=== PATIENT | female | born 1955 | race Caucasian/White ===

== ENCOUNTER 2017-02-11 14:55 | Emergency (ER) | payer OTHER ==
[~2017-02-11 14:55] MED LIST: ALBU18HF INHALATION; AMOX775T5 PO; BENZ100C8 PO; DILT300C25 PO; FLUO20CA25 PO; GUAI10LI PO; HYDR25TA4 PO; LEVO150T5 PO; LOSA100T29 PO; SIMV20TA4 PO
[2017-02-11 15:11] VITALS: BP 127/76; PULSE 87; RESP 18; O2SAT 92
--- NOTE | 2017-02-11 16:43 | ED.REPORT ---
HPI-Extremity Problem Lower Date of Service Feb 11, 2017 ED Provider: Erik Longo DO 61 y/o female with a hx of HTN, hypercholesteremia, cellulitis presents to the ED complaining of bilateral leg swelling, which improves when she elevates her legs. Pt reports tenderness and pain secondary to touch but denies SOB and fever. She has been taking amoxicillin for 3-4 days with no improvement in swelling. Nursing Notes Stated Complaint: BILAT LEG SENSITIVITY SENT FROM US Chief Complaint: Extremity Trauma Nursing Notes Reviewed: Yes Allergies: Coded Allergies: No Known Allergies (Verified , 02/11/17) Scheduled Amoxicillin/Clav K 875-125 mg (Amoxicillin/Clav K 875-125 mg) 875 Mg Tab 1 TABLET PO BID Diltiazem ER (Cartia XT) 300 Mg Cap.er.24h 300 MG PO QPM Fluoxetine (Fluoxetine) 20 Mg Capsule 20 MG PO DAILY Take 1 to 2 capsules by mouth in the morning Furosemide (Furosemide) 20 Mg Tab 20 MG PO DAILY Hydrochlorothiazide (Hydrochlorothiazide) 25 Mg Tablet 25 MG PO DAILY Levothyroxine (Levothyroxine) 150 Mcg Tablet 150 MCG PO DAILY Losartan Potassium (Losartan Potassium) 100 Mg Tablet 100 MG PO DAILY Simvastatin (Simvastatin) 20 Mg Tablet 20 MG PO HS Scheduled PRN Albuterol Sulfate (Ventolin HFA Inhaler) 200 Puff/18 Gm Inhaler INHALATION PRN For Shortness of Breath Benzonatate (Benzonatate) 100 Mg Capsule 100 MG PO TID PRN PRN For Cough Guaifenesin/Codeine Phosphate (Guaifenesin-Codeine Syrup) 10 Ml Liquid 5 ML PO Q4H PRN PRN For Cough General Time Seen by MD: 16:42 Chief Complaint Other (Bilateral leg swelling) Hx Obtained From: Patient Arrived By: Walk-in Symptom Duration: Since onset Location: : Leg left: Leg right Severity: Current: No pain currently Severity: Maximum: Moderate Similar Sx Previous: No Past Medical History Past Medical History Asthma HTN Migraines Depression Past Surgical History Reports: Hysterectomy Smoking History Unknown if Ever Smoker Social History Other Social History: Good social support Ambulatory Status Independent Review of Systems Basic Review of Systems Respiratory: No shortness of breath, No cough, No wheeze Cardiovascular: No chest pain, No dyspnea on exertion, No orthopnea, No parox noct dyspnea, No palpitations Constitutional: Denies: Fever Musculoskeletal: Reports: Extremity swelling, Denies: Extremity pain Neurologic: Denies: Numbness Complete sys rev & neg: except as marked. Physical Exam Initial Vital Signs Vital Signs (First) Date Time Temp Pulse Resp B/P Pulse Ox O2 Delivery O2 Flow Rate FiO2 02/11/17 15:11 36.5 87 18 127/76 92 Room Air Initial VS: Reviewed, Vital signs normal Head / Eyes: Atraumatic, Normocephalic, PERRL Neck: Supple, Full range of motion Respiratory: Breath sounds normal, Clear to auscultation, No respiratory distress Abdomen / GI: Soft, Non-tender, No guarding, No rebound, No distention Upper Extremities: Vascular intact, Neuro intact, No swelling, No tenderness Neurologic: Alert, Oriented, Nonfocal Psychiatric: Mood/affect normal, Behavior normal, Normal thought content Lower Extremity / Pelvis / MS: Atraumatic, Full range of motion Symmetric bilateral swelling and erythema without warmth. Mild tenderness to palpation bilaterally. Ankle / Foot: Atraumatic, Full range of motion, Neurologic intact, Vascular intact Right Ankle: Positive: Erythema present, Swelling present..., Tenderness present... Left Ankle: Positive: Erythema present, Swelling present..., Tenderness present... 2+ DP pulses General/Constitutional: Awake, Alert, Cooperative, Not toxic appearing Lower Ext Edema: Positive: Bilateral 2+ Interpretation & Diagnostics Lab Results Interpretation Result Diagram: 02/11/17 1654 02/11/17 1654 Test 02/11/17 16:54 02/11/17 17:08 White Blood Count 11.1th/mm3 (3.8-10.1) Red Blood Count 4.92mil/mm3 (3.90-5.20) Hemoglobin 12.9g/dL (12.0-15.6) Hematocrit 43.0% (35.0-46.0) Mean Corpuscular Volume 87.4fL (81-100) Mean Corpuscular Hemoglobin 26.2pg (27.0-35.0) Mean Corpuscular Hemoglobin Concent 30.0% (32.0-37.0) Red Cell Distribution Width 17.0% (12.3-15.4) Platelet Count 267bil/L (150-400) Neutrophils (%) (Auto) 58.0% (40-74) Lymphocytes (%) (Auto) 31.8% (14-46) Monocytes (%) (Auto) 7.1% (4-12) Eosinophils (%) (Auto) 2.6% (0-5) Basophils (%) (Auto) 0.2% (0-3) Sodium Level 136mEq/L (134-144) Potassium Level 4.4mEq/L (3.5-5.2) Chloride Level 95mEq/L (97-108) Carbon Dioxide Level 25mmol/L (18-29) Blood Urea Nitrogen 16mg/dL (8-27) Creatinine 1.19mg/dL (0.57-1.00) Estimat Glomerular Filtration Rate 66mL/min (>59) Glucose Level 98mg/dL (60-99) Lactic Acid Level 1.4mmol/L (0.4-2.0) Calcium Level 9.0mg/dL (8.5-10.1) Magnesium Level 1.8mg/dL (1.6-2.6) Total Bilirubin 0.4mg/dL (0.0-1.2) Aspartate Amino Transf (AST/SGOT) 14U/L (0-50) Alanine Aminotransferase (ALT/SGPT) 10U/L (0-32) Alkaline Phosphatase 81U/L (25-165) Pro-B-Type Natriuretic Peptide 77.78pg/mL (0-287) Total Protein 7.7g/dL (6.4-8.4) Albumin 3.7g/dL (3.4-5.0) Procalcitonin 0.05ng/mL (0.00-0.08) Hold Urine Received (Received) Re-Eval/Medical Decision Med Decision/Clinical Course Overall assessment look like severe infection, she has symmetric lower extremity edema does not seem to be consistent with liver failure, renal failure, heart failure, vital signs are stable. Her O2 sat is borderline though this looks like a chronic trend for her based on prior records. she is ambulatory with a steady gait and will be discharged on furosemide. Return and follow-up precautions given. Re-Evaluation/Progress : Time of Eval: 17:00 Re-Evaluation/Progress Note: Pt rechecked. Discussed lab results and diagnosis. Informed the pt of the plan to discharge. Pt understands and agrees with plan. F/U instructions and RTER warning given. All questions addressed. Counseled Regarding: Diagnosis, Lab results, Need for follow-up, When/why to return to ED Discharge & Departure Impression: Primary Impression: Dependent edema Disposition: Home Discharge Condition All VS Reviewed: Yes Condition: Improved Patient Instructions: Leg Edema (ED) Additional Instructions: Take the Furosemide as directed. Call Dr. Toribio tomorrow to try to get an earlier appointment. If not, keep your current appointment. Return to the ER for redness spreading up your legs, chest pain, fever or any other concerning symptoms. Referrals: Eliza Toribio MD (PCP) Scribe Attestation Portions of this note were transcribed by Fatuma Tay and Amairani Bronson. I, personally performed the history, physical exam and medical decision-making;I reviewed and confirmed the accuracy of the information in the transcribed note. Signed by Fatuma Tay and Amairani Bronson, [place]. 02/11/17 [id number] copies to: Eliza Toribio MD, Timothy S DO Feb 11, 2017 16:43 Fatuma Tay Feb 11, 2017 16:50 Amairani Bronson Feb 11, 2017 18:07
[2017-02-11] MEDS ORDERED: AGM875T PO (17:03)
[2017-02-11 17:09] LABS: BASOPHILS % (AUTO) 0.2 % (0-3); EOSINOPHILS % (AUTO) 2.6 % (0-5); MONOCYTES % (AUTO) 7.1 % (4-12); Mean Corpuscular Hemoglobin 26.2 pg (27.0-35.0); Mean Corpuscular Volume 87.4 fL (81-100); Platelet Count 267 bil/L (150-400)
[2017-02-11 17:37] LABS: Magnesium 1.8 mg/dL (1.6-2.6)
[2017-02-11] MEDS ORDERED: Furosemide 10 mg/mL 4 mL Inj IVPUSH ONE (18:00)
[2017-02-11] MEDS ORDERED: FUR20 PO (18:08)
[2017-02-11 18:32] VITALS: BP 136/41; PULSE 80; O2SAT 92
== END 2017-02-11 18:37 | disposition home or self-care (01) ==
LOC: SED 14:55
DX: R60.9 Edema, unspecified (principal); I10 Essential (primary) hypertension; J45.909 Unspecified asthma, uncomplicated
CPT/HCPCS: 36415; 80053; 83605; 83735; 83880; 84145; 85025; 96374; 99284; J1940